=== PATIENT | female | born 1930 | race Hispanic/Latino ===

== ENCOUNTER 2020-03-24 11:24 | Inpatient (IN) | payer MEDICARE ==
[~2020-03-24] VITALS: Ht 165.1 cm; Wt 68.9 kg
[2020-03-24] MEDS ORDERED: SODIUM CHLORIDE 0.9% 1000ML 1,000 ML IV STA (11:51)
[2020-03-24 13:30] LABS: BASOPHILS % 0.3 % (0.0-1.0); EOSINOPHILS % 0.3 % (0.0-6.0); LYMPHOCYTES # (AUTO) 0.8 (1.0-3.2); LYMPHOCYTES % 22.7 % (18.0-39.1); MEAN CORPUSCULAR HEMOGLOBIN 29.2 pg (28-32); MEAN CORPUSCULAR HGB CONC 31.6 g/dL (31-35); MEAN CORPUSCULAR VOLUME 92.5 fL (81-99); MONOCYTES # (AUTO) 0.4 (0.2-0.8); MONOCYTES % 11.5 % (4.4-11.3); NEUTROPHILS # (AUTO) 2.2 (2.1-6.9); PLATELET COUNT 113 x10e3/uL (140-360); RED BLOOD COUNT 4.11 x10e6/uL (3.6-5.1); RED CELL DISTRIBUTION WIDTH 12.9 % (11.7-14.4)
[2020-03-24 13:35] LABS: INR 0.89; PROTHROMBIN TIME 12.5 seconds (11.9-14.5)
[2020-03-24 13:36] LABS: PARTIAL THROMBOPLASTIN TIME 32.3 seconds (23.8-35.5)
[2020-03-24 13:46] LABS: ALBUMIN 3.3 g/dL (3.5-5.0); ALBUMIN/GLOBULIN RATIO 1.1 (0.8-2.0); ANION GAP 12.9 mmol/L (8-16); CALCIUM 8.3 mg/dL (8.4-10.2); CREATININE, SERUM 0.9 mg/dL (0.57-1.11); POTASSIUM 3.9 mmol/L (3.5-5.1)
[2020-03-24 14:06] LABS: CREATINE KINASE MB 4.2 ng/mL (0-5.0); THYROID STIMULATING HORMONE 5.865 uIU/mL (0.350-4.940)
[2020-03-24 15:09] LABS: CLARITY,URINE CLEAR (CLEAR); COLOR,URINE YELLOW (YELLOW)
[2020-03-24 15:10] LABS: BILIRUBIN,URINE NEGATIVE (NEGATIVE); KETONES,URINE NEGATIVE (NEGATIVE); LEUKOCYTE ESTERASE ,URINE TRACE (NEGATIVE); NITRITE,URINE NEGATIVE (NEGATIVE); PROTEIN,URINE DIPSTICK TRACE (NEGATIVE); URINE UROBILINOGEN 0.2 mg/dL (0.2 - 1)
[2020-03-24 15:15] LABS: BACTERIA,URINE FEW /HPF; EPITHELIAL CELLS,URINE FEW /LPF; MUCUS,URINE FEW (RARE)
[2020-03-24] MEDS ORDERED: ONDANSETRON HCL INJ 2MG/ML 2ML 2 MG/ML VIAL IV PRN (16:30)
[2020-03-24] MEDS: CEFTRIAXONE SOD 1 GM/NS 50 ML 50 ML IV SCH (16:37)
[2020-03-24] MEDS: SODIUM CHLORIDE 0.9% 1000ML 1,000 ML IV SCH (17:34)
[2020-03-24] MEDS ORDERED: RESTASIS1 EACH OP (17:38)
[2020-03-24] MEDS ORDERED: LEVOTHYROXINE100 MCG PO (17:38)
[2020-03-24] MEDS ORDERED: LISINOPRIL5 MG PO (17:38)
[2020-03-24] MEDS ORDERED: OMEPRAZOLE20 MG PO (17:38)
[2020-03-24] MEDS ORDERED: ATORVASTATIN CA10 MG PO (17:38)
[2020-03-24 18:00] VITALS: BP 167/68
[2020-03-24 18:17] VITALS: BP 167/68
[2020-03-24 18:22] VITALS: BP 167/68
[2020-03-24 20:00] VITALS: BP 142/56
[2020-03-24 21:00] VITALS: BP 142/56
[2020-03-24 23:30] VITALS: BP 134/59
[2020-03-25] VITALS (8 sets, daily range): BP systolic 133–155; BP diastolic 51–70
[2020-03-25 00:56] LABS: CREATINE KINASE MB 2.7 ng/mL (0-5.0)
[2020-03-25] MEDS: SODIUM CHLORIDE 0.9% 1000ML 1,000 ML IV SCH (01:54)
[2020-03-25] MEDS: CEFTRIAXONE SOD 1 GM/NS 50 ML 50 ML IV SCH ×2 (05:30→16:45)
[2020-03-25 06:04] LABS: BASOPHILS % 0.4 % (0.0-1.0); EOSINOPHILS % 1.2 % (0.0-6.0); HEMATOCRIT 34.3 % (34.2-44.1); HEMOGLOBIN 11.1 g/dL (12.0-16.0); LYMPHOCYTES # (AUTO) 0.5 (1.0-3.2); LYMPHOCYTES % 20.6 % (18.0-39.1); MEAN CORPUSCULAR HEMOGLOBIN 29.6 pg (28-32); MEAN CORPUSCULAR HGB CONC 32.4 g/dL (31-35); MEAN CORPUSCULAR VOLUME 91.5 fL (81-99); MONOCYTES # (AUTO) 0.3 (0.2-0.8); MONOCYTES % 10.1 % (4.4-11.3); NEUTROPHILS # (AUTO) 1.6 (2.1-6.9); NEUTROPHILS % 66.1 % (38.7-80.0); PLATELET COUNT 97 x10e3/uL (140-360); RED BLOOD COUNT 3.75 x10e6/uL (3.6-5.1); RED CELL DISTRIBUTION WIDTH 13.1 % (11.7-14.4)
[2020-03-25 06:18] LABS: ALANINE AMINOTRANSFERASE 28 IU/L (0-55); ALBUMIN 2.6 g/dL (3.5-5.0); ALKALINE PHOSPHATASE 55 IU/L (40-150); ANION GAP 10.5 mmol/L (8-16); BLOOD UREA NITROGEN 12 mg/dL (7-26); BUN/CREATININE RATIO 16 (6-25); CALCIUM 7.4 mg/dL (8.4-10.2); CARBON DIOXIDE 22 mmol/L (22-29); CHLORIDE 109 mmol/L (98-107); CREATININE, SERUM 0.74 mg/dL (0.57-1.11); EST GLOMERULAR FILTRATION RATE > 60 ML/MIN (60-); GLUCOSE 94 mg/dL (74-118); POTASSIUM 3.5 mmol/L (3.5-5.1); SODIUM 138 mmol/L (136-145)
[2020-03-25 07:53] LABS: CREATINE KINASE MB 2.4 ng/mL (0-5.0)
[2020-03-25 08:23] LABS: EOSINOPHILS % (MANUAL) 1 % (0-7); LYMPHOCYTES % (MANUAL) 16 % (19-48); METAMYELOCYTES % (MANUAL) 1 % (0-0); MONOCYTES % (MANUAL) 8 % (3.4-9.0); NEUTROPHILS % (MANUAL) 69 % (40-74); PLATELET ESTIMATE SLIGHTLY DECREASED; PLATELET MORPHOLOGY COMMENT NORMAL; RBC MORPHOLOGY COMMENT NORMAL
[2020-03-25] MEDS ORDERED: ACETAMINOPHEN 325 MG TAB PO PRN (09:45)
[2020-03-25] MEDS ORDERED: HYDRALAZINE HCL 20 MG/ML VIAL IV PRN (09:45)
[2020-03-25] MEDS ORDERED: KETOROLAC TROMETHAMINE 30 MG/ML VIAL IV PRN (10:30)
[2020-03-25] MEDS: LISINOPRIL 2.5 MG TAB PO SCH (10:45)
[2020-03-25] MEDS: LEVOTHYROXINE SODIUM 112 MCG TAB PO SCH (12:25)
[2020-03-25] MEDS: FAMOTIDINE 20 MG TAB PO SCH (16:30)
[2020-03-25] MEDS: NON-FORMULARY MEDICATION (Cyclosporine (Restasis) 1 DROP) OP SCH (16:45)
[2020-03-25] MEDS ORDERED: ATORVASTATIN 10 MG TAB PO SCH (21:00)
[2020-03-26] VITALS: BP 136/68
[2020-03-26 04:00] VITALS: BP 149/70
[2020-03-26] MEDS: CEFTRIAXONE SOD 1 GM/NS 50 ML 50 ML IV SCH ×2 (05:28→16:56)
[2020-03-26] MEDS ORDERED: LEVOTHYROXINE SODIUM 112 MCG TAB PO SCH (06:00)
[2020-03-26] MEDS: FAMOTIDINE 20 MG TAB PO SCH ×2 (06:10→09:31)
[2020-03-26] MEDS: LEVOTHYROXINE SODIUM 112 MCG TAB PO SCH (06:10)
[2020-03-26 07:00] LABS: BASOPHILS % 0.4 % (0.0-1.0); EOSINOPHILS # (AUTO) 0.1 (0.0-0.4); HEMATOCRIT 35.4 % (34.2-44.1); HEMOGLOBIN 11.5 g/dL (12.0-16.0); LYMPHOCYTES # (AUTO) 0.5 (1.0-3.2); LYMPHOCYTES % 20.6 % (18.0-39.1); MEAN CORPUSCULAR HEMOGLOBIN 29.9 pg (28-32); MEAN CORPUSCULAR HGB CONC 32.5 g/dL (31-35); MEAN CORPUSCULAR VOLUME 92.2 fL (81-99); MONOCYTES # (AUTO) 0.2 (0.2-0.8); MONOCYTES % 9.4 % (4.4-11.3); NEUTROPHILS # (AUTO) 1.5 (2.1-6.9); NEUTROPHILS % 65.3 % (38.7-80.0); PLATELET COUNT 81 x10e3/uL (140-360); RED BLOOD COUNT 3.84 x10e6/uL (3.6-5.1); RED CELL DISTRIBUTION WIDTH 12.9 % (11.7-14.4)
[2020-03-26] MEDS ORDERED: LEVOTHYROXINE112 MCG PO (07:15)
[2020-03-26] MEDS ORDERED: CEFDINIR300 MG PO ×2 (07:15→10:01)
[2020-03-26] MEDS ORDERED: ASPIRIN CHEW81 MG PO (07:15)
[2020-03-26 07:31] LABS: ALANINE AMINOTRANSFERASE 25 IU/L (0-55); ALBUMIN 2.6 g/dL (3.5-5.0); ALKALINE PHOSPHATASE 60 IU/L (40-150); ANION GAP 10.6 mmol/L (8-16); BLOOD UREA NITROGEN 10 mg/dL (7-26); BUN/CREATININE RATIO 14 (6-25); CALCIUM 7.6 mg/dL (8.4-10.2); CARBON DIOXIDE 23 mmol/L (22-29); CHLORIDE 106 mmol/L (98-107); CREATININE, SERUM 0.74 mg/dL (0.57-1.11); EST GLOMERULAR FILTRATION RATE > 60 ML/MIN (60-); GLUCOSE 93 mg/dL (74-118); POTASSIUM 3.6 mmol/L (3.5-5.1); SODIUM 136 mmol/L (136-145)
[2020-03-26 08:19] VITALS: BP 114/52
[2020-03-26 08:30] VITALS: BP 114/52
[2020-03-26] MEDS ORDERED: PANTOPRAZOLE SOD 40 MG TABEC PO SCH (09:00)
[2020-03-26] MEDS: LISINOPRIL 2.5 MG TAB PO SCH (09:00)
[2020-03-26] MEDS: NON-FORMULARY MEDICATION (Cyclosporine (Restasis) 1 DROP) OP SCH ×2 (09:00→17:00)
[2020-03-26] MEDS ORDERED: ASPIRIN 81 MG CHEW TAB PO SCH (09:00)
[2020-03-26] MEDS: LEVETIRACETAM ORAL SOLUTION 500 MG/5 ML SOLN PO SCH ×2 (09:42→16:56)
[2020-03-26] MEDS ORDERED: KEPPRA500 MG PO (10:00)
[2020-03-26] MEDS ORDERED: IOPAMIDOL 370 MG/ML 200 ML INFUS..BTL INJ ONE (10:58)
[2020-03-26] MEDS ORDERED: SODIUM CHLORIDE 0.9% 100 ML ONE (10:58)
[2020-03-26] MEDS ORDERED: ONDANSETRON HCL 4 MG ORAL DISINTEGRATING TAB PO PRN (15:30)
[2020-03-26 15:58] VITALS: BP 125/70
[2020-03-26 20:20] VITALS: BP 115/63
== END 2020-03-26 19:56 | disposition home health service (06) | DRG 101 ==
LOC: ER 12:01 → ERHOLD 16:31 → MED/SURG2 17:51
PROVIDERS: ADMIT Internal Medicine; ATTEND Internal Medicine
DX: R56.9 Unspecified convulsions (principal); M62.82 Rhabdomyolysis; N39.0 Urinary tract infection, site not specified; E78.5 Hyperlipidemia, unspecified; I10 Essential (primary) hypertension; E03.9 Hypothyroidism, unspecified; Z11.59 Encounter for screening for other viral diseases; H91.90 Unspecified hearing loss, unspecified ear; Z91.81 History of falling; K21.9 Gastro-esophageal reflux disease without esophagitis; Z88.8 Allergy status to other drugs, medicaments and biological substances; Z83.3 Family history of diabetes mellitus; R55 Syncope and collapse
CPT/HCPCS: 36415; 70450; 70496; 70498; 70551; 71045; 72125; 72170; 80053; 81001; 82550; 82553; 84443; 84484; 85025; 85610; 85730; 87040; 87086; 87186; 93005; 93306; 93880; 95812; 97139; 99284; J0696; J7030; J7050; Q9967; U0002